=== PATIENT | female | born 1975 | race Caucasian/White ===

== ENCOUNTER 2020-01-13 14:03 | Emergency (ER) | payer BC ==
[~2020-01-13] VITALS: Ht 167.6 cm; Wt 74.8 kg
[2020-01-13 14:05] VITALS: BP_SYST 126
--- NOTE | 2020-01-13 14:05 | NUR ---
BROUGHT BACK TO BED #6 AND TRIAGED. REPORT GIVEN TO FABIOLA
[2020-01-13] MEDS ORDERED: ONDANSETRON 4 MG ODT TAB PO ONE (14:45)
[2020-01-13] MEDS ORDERED: KETOROLAC TROMETHAMINE 60 MG/2 ML VIAL IM ONE (14:45)
--- NOTE | 2020-01-13 14:45 | NUR ---
ER at bedside examining patient.
--- NOTE | 2020-01-13 14:50 | NUR ---
patient lying on bed, cc of abdominal pain, abdominal discomfort, nausea d/t constipation. stated been taking iron supplement for daily basis but not drinking enough fluid. denies vomiting. vss, afebrile.no other concerned noted.
[2020-01-13 16:15] VITALS: BP_SYST 125
--- NOTE | 2020-01-13 16:15 | NUR ---
Patient given written and verbal discharge instructions and verbalizes understanding. ER MD discussed with patient the results and treatment provided. Patient in stable condition. ID arm band removed. Rx of adrian maciel, given. Patient educated on pain management and to follow up with PMD. Pain Scale 1. Opportunity for questions provided and answered. Medication side effect fact sheet provided.
== END 2020-01-13 16:15 | disposition home or self-care (01) ==
LOC: SED 14:03
DX: K59.00 Constipation, unspecified (principal)
CPT/HCPCS: 74018; 81002; 81025; 96372; 99283; J1885; Q0162